=== PATIENT | female | born 1940 | race Caucasian/White ===

== ENCOUNTER 2023-12-13 18:41 | Inpatient (IN) | payer OTHER ==
[~2023-12-13] VITALS: Ht 152.4 cm; Wt 34.5 kg
[2023-12-13] MEDS: IV NS 0.9% 1,000 ML BAG IV ONE (19:28)
[2023-12-13 19:38] LABS: BASOPHILS % (AUTO) 0.2 % (0.0-2.0); HEMATOCRIT 36 % (33-45); HEMOGLOBIN 11.2 g/dL (11.5-14.8); LYMPHOCYTES # (AUTO) 0.6 K/uL (0.8-4.8); LYMPHOCYTES % (AUTO) 2.8 % (20.0-44.0); MEAN CORPUSCULAR HEMOGLOBIN 33 PG (26.0-33.0); MEAN CORPUSCULAR HGB CONC 32 g/dl (31.0-36.0); MEAN CORPUSCULAR VOLUME 106 fL (82-100); MONOCYTES # (AUTO) 1.1 K/uL (0.1-1.30); MONOCYTES % (AUTO) 5.4 % (2.0-12.0); NEUTROPHILS # (AUTO) 19.3 K/uL (1.8-8.9); NEUTROPHILS % (AUTO) 91.6 % (43.0-81.0); PLATELET COUNT (AUTO) 300 K/uL (150-450); RED BLOOD CELL COUNT(AUTO) 3.37 MIL/uL (4.0-5.2); WHITE BLOOD COUNT (AUTO) 21.1 K/uL (4.3-11.0)
[2023-12-13 19:54] LABS: CALCIUM, SERUM 9.4 mg/dL (8.5-10.1); CARBON DIOXIDE 27 mmol/L (21-32); CHLORIDE 116 mmol/L (98-107); CREATININE 1.1 mg/dL (0.6-1.3); GLUCOSE 112 mg/dL (74-106); POTASSIUM 4.6 mmol/L (3.5-5.1); SODIUM SERUM 152 mmol/L (136-145); UREA NITROGEN, BLOOD 56 mg/dL (7-18)
[2023-12-13] MEDS ORDERED: CEFEPIME 1 GM VIAL ONE (19:57)
[2023-12-13 19:58] LABS: APPEARANCE,URINE Clear (CLEAR); BILIRUBIN,URINE Negative (NEGATIVE); BLOOD, URINE Negative Ery/uL (NEGATIVE); COLOR,URINE YELLOW (YELLOW); KETONES,URINE Negative (NEGATIVE); LEUKOCYTE ESTERASE ,URINE Negative (NEGATIVE); NITRITE, URINE Negative (NEGATIVE); PROTEIN,URINE Negative (NEGATIVE); UGLUCOSE Negative (NEGATIVE); UROBILINOGEN,URINE 0.2 EU/dL (0.2)
[2023-12-13 20:04] LABS: INR 1.19 (0.91-1.10); PARTIAL THROMBOPLASTIN TIME 28.6 SEC (24.3-34.3); PROTHROMBIN TIME 12.2 SECS (9.2-11.1)
[2023-12-13] MEDS: CEFEPIME 1 GM in IV D5W 50 ML IV ONE (20:04)
[2023-12-13 20:08] LABS: ALANINE AMINOTRANSFERASE 18 U/L (12-78); ALBUMIN 2.6 g/dL (3.4-5.0); ALKALINE PHOSPHATASE 91 U/L (46-116); ASPARTATE AMINOTRANSFERASE 26 U/L (15-37); BILIRUBIN,DIRECT 0.4 mg/dL (0.0-0.2); BILIRUBIN,TOTAL 0.8 mg/dL (0.2-1.0); TOTAL PROTEIN, SERUM 6.8 g/dL (6.4-8.2)
[2023-12-13] MEDS ORDERED: VANCOMYCIN 1 GM /D5W 250 ML PB IV ONE (20:18)
[2023-12-13] MEDS: VANCOMYCIN 1 GM in IV D5W 250 ML IV ONE (20:19)
[2023-12-13 20:20] LABS: THYROID STIMULATING HORMONE 0.473 uIU/mL (0.358-3.74)
[2023-12-13 20:34] LABS: MAGNESIUM 2.7 mg/dL (1.8-2.4)
[2023-12-13] MEDS ORDERED: Z GUARD REMEDY 4 OZ OINT TP PRN (21:00)
[2023-12-13] MEDS ORDERED: ONDANSETRON HCL/PF 4 MG/2 ML VIAL IVP PRN (21:00)
[2023-12-13] MEDS ORDERED: MAGNESIUM HYDROXIDE 30 ML UDC PO PRN (21:00)
[2023-12-13] MEDS ORDERED: MAG HYDROX/AL HYDROX/SIMETH 30 ML UDC PO PRN (21:00)
[2023-12-13] MEDS ORDERED: POTA10TA10 PO (21:50)
[2023-12-13] MEDS ORDERED: DOCU100C36 PO (21:50)
[2023-12-13] MEDS ORDERED: APIX2.5T PO (21:50)
[2023-12-13] MEDS ORDERED: IPRA0.2S49 IH (21:50)
[2023-12-13] MEDS ORDERED: OMEP20CA15 PO (21:50)
[2023-12-13] MEDS ORDERED: TICA90TA PO (21:50)
[2023-12-13] MEDS ORDERED: ATOR20TA PO (21:50)
[2023-12-13] MEDS ORDERED: ASPI-1169 PO (21:50)
[2023-12-13] MEDS ORDERED: ACET-73 PO (21:50)
[2023-12-13] MEDS ORDERED: POLY17PO4 PO (21:50)
[2023-12-13] MEDS ORDERED: SERT25TA PO (21:50)
[2023-12-13] MEDS ORDERED: DIGO125T PO (21:50)
[2023-12-13] MEDS ORDERED: MEGE40TA5 GT (21:50)
[2023-12-13] MEDS ORDERED: METO25TA4 PO (21:50)
[2023-12-13] MEDS ORDERED: BUME1TAB8 PO (21:50)
[2023-12-13] MEDS ORDERED: MELA5TAB PO (21:50)
[2023-12-13] MEDS: IV D5W 1,000 ML IV PRN (23:18)
[2023-12-14] VITALS (8 sets, daily range): BP systolic 96–108; BP diastolic 54–73; TEMP 96.9–97.9; O2SAT 94–99
[2023-12-14 07:26] LABS: HEMATOCRIT 30 % (33-45); HEMOGLOBIN 9.4 g/dL (11.5-14.8); LYMPHOCYTES # (AUTO) 0.6 K/uL (0.8-4.8); LYMPHOCYTES % (AUTO) 2.9 % (20.0-44.0); MEAN CORPUSCULAR HEMOGLOBIN 34 PG (26.0-33.0); MEAN CORPUSCULAR HGB CONC 31 g/dl (31.0-36.0); MEAN CORPUSCULAR VOLUME 108 fL (82-100); MONOCYTES # (AUTO) 1.3 K/uL (0.1-1.30); MONOCYTES % (AUTO) 6.9 % (2.0-12.0); NEUTROPHILS # (AUTO) 17.6 K/uL (1.8-8.9); NEUTROPHILS % (AUTO) 90.2 % (43.0-81.0); PLATELET COUNT (AUTO) 219 K/uL (150-450); RED BLOOD CELL COUNT(AUTO) 2.81 MIL/uL (4.0-5.2); RED CELL DISTRIBUTION WIDTH 19.1 % (11.5-15.0); WHITE BLOOD COUNT (AUTO) 19.5 K/uL (4.3-11.0)
[2023-12-14 07:54] LABS: CALCIUM, SERUM 8.4 mg/dL (8.5-10.1); CHLORIDE 116 mmol/L (98-107); CREATININE 0.9 mg/dL (0.6-1.3); GLUCOSE 152 mg/dL (74-106); MAGNESIUM 2.2 mg/dL (1.8-2.4); PHOSPHORUS 3.7 mg/dL (2.5-4.9); POTASSIUM 3.5 mmol/L (3.5-5.1); SODIUM SERUM 151 mmol/L (136-145); UREA NITROGEN, BLOOD 44 mg/dL (7-18)
[2023-12-14 08:03] LABS: THYROID STIMULATING HORMONE 0.321 uIU/mL (0.358-3.74)
[2023-12-14 08:20] LABS: CARBON DIOXIDE 24 mmol/L (21-32)
[2023-12-14] MEDS ORDERED: PANTOPRAZOLE 40 MG VIAL IV SCH (09:00)
[2023-12-14] MEDS ORDERED: ACET325T53 PO (09:23)
[2023-12-14] MEDS ORDERED: MEGE400O5 PO (09:23)
[2023-12-14] MEDS ORDERED: SERTRALINE HCL 25 MG TABLET PO SCH (09:30)
[2023-12-14] MEDS: ENOXAPARIN SODIUM 30 MG/0.3 ML DISP.SYRIN SQ SCH (09:38)
[2023-12-14] MEDS: PANTOPRAZOLE 40 MG TABLET.DR PO SCH (10:42)
[2023-12-14] MEDS: IPRATROPIUM NEB FS 0.5 MG/2.5 ML AMPUL.NEB IH SCH (13:00)
[2023-12-14] MEDS ORDERED: METOPROLOL SUCCINATE 25 MG TAB.SR.24H PO SCH (17:00)
[2023-12-14] MEDS: MEGESTROL ACETATE SUSP 400 MG/10 ML UDC PO SCH (18:07)
[2023-12-14] MEDS: DOCUSATE SODIUM 100 MG CAPSULE PO SCH (18:07)
[2023-12-14] MEDS: TICAGRELOR 90 MG TABLET PO SCH (18:07)
[2023-12-14] MEDS: ACETAMINOPHEN 325 MG TABLET PO PRN (18:07)
[2023-12-14] MEDS: VANCOMYCIN 750 MG in IV D5W 250 ML IV SCH (21:02)
[2023-12-14] MEDS: ATORVASTATIN 10 MG TABLET PO SCH (21:02)
[2023-12-14] MEDS ORDERED: Medication Not On Formulary EA (Melatonin 5 MG) PO SCH (22:00)
[2023-12-15] VITALS (16 sets, daily range): BP systolic 91–150; BP diastolic 51–74; TEMP 97.5–100.4; O2SAT 94–99
[2023-12-15 07:38] LABS: CALCIUM, SERUM 8.6 mg/dL (8.5-10.1); CREATININE 0.8 mg/dL (0.6-1.3); POTASSIUM 3.4 mmol/L (3.5-5.1)
[2023-12-15] MEDS: ASPIRIN 81 MG TAB.CHEW PO SCH (08:24)
[2023-12-15] MEDS: POTASSIUM CHLORIDE 10 MEQ TABLET.SA PO SCH (08:25)
[2023-12-15 08:54] LABS: BASOPHILS # (AUTO) 0.1 K/uL (0.0-0.2); BASOPHILS % (AUTO) 0.8 % (0.0-2.0); HEMATOCRIT 32 % (33-45); HEMOGLOBIN 9.9 g/dL (11.5-14.8); LYMPHOCYTES # (AUTO) 0.4 K/uL (0.8-4.8); LYMPHOCYTES % (AUTO) 4.9 % (20.0-44.0); MEAN CORPUSCULAR HEMOGLOBIN 34 PG (26.0-33.0); MEAN CORPUSCULAR HGB CONC 31 g/dl (31.0-36.0); MEAN CORPUSCULAR VOLUME 107 fL (82-100); MONOCYTES # (AUTO) 0.4 K/uL (0.1-1.30); MONOCYTES % (AUTO) 4.5 % (2.0-12.0); NEUTROPHILS # (AUTO) 8.1 K/uL (1.8-8.9); NEUTROPHILS % (AUTO) 89.8 % (43.0-81.0); PLATELET COUNT (AUTO) 195 K/uL (150-450); RED BLOOD CELL COUNT(AUTO) 2.95 MIL/uL (4.0-5.2); RED CELL DISTRIBUTION WIDTH 18.2 % (11.5-15.0)
[2023-12-15] MEDS: ENOXAPARIN SODIUM 40 MG/0.4 ML DISP.SYRIN SQ SCH (08:55)
[2023-12-15] MEDS ORDERED: BUMETANIDE (1 MG) 1 MG TABLET PO SCH (09:00)
[2023-12-15] MEDS: POTASSIUM CHLORIDE 10 MEQ TABLET.SA PO ONE (09:56)
[2023-12-15] MEDS: POTASSIUM CL. PREMIX PERIPHER. 50 ML IV SCH (09:58)
[2023-12-15] MEDS: CEFEPIME 1 GM in IV D5W 50 ML IV SCH (11:26)
[2023-12-15] MEDS ORDERED: DIGOXIN 0.125 MG TABLET PO SCH (13:00)
[2023-12-16] VITALS (18 sets, daily range): BP systolic 93–118; BP diastolic 52–67; TEMP 97.2–98; O2SAT 95–100
[2023-12-16 07:28] LABS: CALCIUM, SERUM 8.8 mg/dL (8.5-10.1); CREATININE 0.6 mg/dL (0.6-1.3); POTASSIUM 3.1 mmol/L (3.5-5.1)
[2023-12-16] MEDS: POTASSIUM CHLORIDE 20 MEQ POWDER PACKET PO SCH (10:02)
[2023-12-16 18:32] LABS: BASOPHILS % (AUTO) 0.1 % (0.0-2.0); EOSINOPHILS % (AUTO) 0.4 % (0.0-6.0); HEMATOCRIT 28 % (33-45); HEMOGLOBIN 9.1 g/dL (11.5-14.8); LYMPHOCYTES # (AUTO) 0.4 K/uL (0.8-4.8); LYMPHOCYTES % (AUTO) 4.6 % (20.0-44.0); MEAN CORPUSCULAR HEMOGLOBIN 34 PG (26.0-33.0); MEAN CORPUSCULAR HGB CONC 33 g/dl (31.0-36.0); MEAN CORPUSCULAR VOLUME 104 fL (82-100); MONOCYTES # (AUTO) 0.6 K/uL (0.1-1.30); MONOCYTES % (AUTO) 5.8 % (2.0-12.0); NEUTROPHILS # (AUTO) 8.6 K/uL (1.8-8.9); NEUTROPHILS % (AUTO) 89.1 % (43.0-81.0); PLATELET COUNT (AUTO) 172 K/uL (150-450); WHITE BLOOD COUNT (AUTO) 9.7 K/uL (4.3-11.0)
[2023-12-16 20:46] LABS: BAND % (MANUAL) 2 % (0.0-5.0); LYMPHOCYTES % (MANUAL) 5 % (16-48); MONOCYTES % (MANUAL) 4 % (0-11.0); NEUTROPHILS % (MANUAL) 89 (42-76); PLATELET ESTIMATE ADEQUATE
[2023-12-16 20:47] LABS: ANISOCYTOSIS 1+; OVALOCYTES 1+
[2023-12-16] MEDS: CEFTRIAXONE 1 G in IV D5W 50 ML IV SCH (21:49)
[2023-12-17] VITALS (16 sets, daily range): BP systolic 100–129; BP diastolic 60–80; TEMP 97.4–97.9; O2SAT 92–100
[2023-12-17 07:38] LABS: OCCULT BLOOD STOOL POSITIVE (NEGATIVE)
[2023-12-17 07:55] LABS: CALCIUM, SERUM 8.6 mg/dL (8.5-10.1); CARBON DIOXIDE 23 mmol/L (21-32); CHLORIDE 109 mmol/L (98-107); CREATININE 0.5 mg/dL (0.6-1.3); GLUCOSE 78 mg/dL (74-106); POTASSIUM 4.1 mmol/L (3.5-5.1); SODIUM SERUM 141 mmol/L (136-145); UREA NITROGEN, BLOOD 18 mg/dL (7-18)
[2023-12-17] MEDS: AMMONIUM LACTATE 227 GM BOTTLE TP SCH (11:07)
[2023-12-17] MEDS: APIXABAN 2.5 MG TABLET PO SCH (11:13)
[2023-12-17 23:32] LABS: HEMOGLOBIN 8.8 g/dL (11.5-14.8)
[2023-12-18] VITALS (15 sets, daily range): BP systolic 108–140; BP diastolic 57–91; TEMP 97.2–97.9; O2SAT 92–100
[2023-12-18 06:54] LABS: EOSINOPHILS % (AUTO) 0.4 % (0.0-6.0); HEMATOCRIT 29 % (33-45); HEMOGLOBIN 9.3 g/dL (11.5-14.8); LYMPHOCYTES # (AUTO) 0.4 K/uL (0.8-4.8); LYMPHOCYTES % (AUTO) 5.9 % (20.0-44.0); MEAN CORPUSCULAR HEMOGLOBIN 34 PG (26.0-33.0); MEAN CORPUSCULAR HGB CONC 32 g/dl (31.0-36.0); MEAN CORPUSCULAR VOLUME 105 fL (82-100); MONOCYTES # (AUTO) 0.6 K/uL (0.1-1.30); MONOCYTES % (AUTO) 8.4 % (2.0-12.0); NEUTROPHILS # (AUTO) 6.3 K/uL (1.8-8.9); NEUTROPHILS % (AUTO) 85.3 % (43.0-81.0); PLATELET COUNT (AUTO) 185 K/uL (150-450); RED BLOOD CELL COUNT(AUTO) 2.73 MIL/uL (4.0-5.2); RED CELL DISTRIBUTION WIDTH 18.4 % (11.5-15.0); WHITE BLOOD COUNT (AUTO) 7.4 K/uL (4.3-11.0)
[2023-12-18 07:04] LABS: CALCIUM, SERUM 9.2 mg/dL (8.5-10.1); CREATININE 0.6 mg/dL (0.6-1.3); POTASSIUM 3.9 mmol/L (3.5-5.1)
[2023-12-18] MEDS ORDERED: CEFT1VIA15 IV (12:25)
[2023-12-18 15:16] LABS: HEMOGLOBIN 8.8 g/dL (11.5-14.8)
[2023-12-18 23:02] LABS: HEMOGLOBIN 8.8 g/dL (11.5-14.8)
[2023-12-19] VITALS (14 sets, daily range): BP systolic 110–135; BP diastolic 59–96; TEMP 96.8–97.6; O2SAT 95–100
[2023-12-19 06:55] LABS: BASOPHILS % (AUTO) 0.1 % (0.0-2.0); EOSINOPHILS % (AUTO) 0.7 % (0.0-6.0); HEMATOCRIT 29 % (33-45); HEMOGLOBIN 9.1 g/dL (11.5-14.8); LYMPHOCYTES # (AUTO) 0.5 K/uL (0.8-4.8); LYMPHOCYTES % (AUTO) 8.2 % (20.0-44.0); MEAN CORPUSCULAR HEMOGLOBIN 34 PG (26.0-33.0); MEAN CORPUSCULAR HGB CONC 32 g/dl (31.0-36.0); MEAN CORPUSCULAR VOLUME 105 fL (82-100); MONOCYTES # (AUTO) 0.6 K/uL (0.1-1.30); MONOCYTES % (AUTO) 9.1 % (2.0-12.0); NEUTROPHILS # (AUTO) 5.4 K/uL (1.8-8.9); NEUTROPHILS % (AUTO) 81.9 % (43.0-81.0); PLATELET COUNT (AUTO) 204 K/uL (150-450); RED BLOOD CELL COUNT(AUTO) 2.71 MIL/uL (4.0-5.2); RED CELL DISTRIBUTION WIDTH 18.4 % (11.5-15.0); WHITE BLOOD COUNT (AUTO) 6.6 K/uL (4.3-11.0)
[2023-12-19 06:56] LABS: CALCIUM, SERUM 9.2 mg/dL (8.5-10.1); CHLORIDE 111 mmol/L (98-107); CREATININE 0.5 mg/dL (0.6-1.3); GLUCOSE 91 mg/dL (74-106); POTASSIUM 3.8 mmol/L (3.5-5.1); SODIUM SERUM 144 mmol/L (136-145); UREA NITROGEN, BLOOD 16 mg/dL (7-18)
[2023-12-19 07:10] LABS: CARBON DIOXIDE 21 mmol/L (21-32)
[2023-12-19] MEDS: ENSURE ENLIVE CHOC 237 ML CAN PO SCH (12:14)
[2023-12-19] MEDS: PROSOURCE / PROSTAT (PYXIS) 30 ML UDC PO SCH (12:29)
[2023-12-20] VITALS (21 sets, daily range): BP systolic 124–159; BP diastolic 66–79; TEMP 97–97.5; O2SAT 97–100
[2023-12-20] MEDS: ZOLPIDEM TARTRATE 5 MG TABLET PO PRN (01:50)
[2023-12-20 07:16] LABS: CALCIUM, SERUM 9.7 mg/dL (8.5-10.1); CREATININE 0.6 mg/dL (0.6-1.3); POTASSIUM 4.2 mmol/L (3.5-5.1)
[2023-12-20] MEDS: IPRATROPIUM NEB FS 0.5 MG/2.5 ML AMPUL.NEB NEB SCH (07:50)
[2023-12-21] VITALS (13 sets, daily range): BP systolic 103–140; BP diastolic 67–85; TEMP 96.8–98.4; O2SAT 94–100
[2023-12-21 07:26] LABS: CALCIUM, SERUM 9.5 mg/dL (8.5-10.1); CREATININE 0.7 mg/dL (0.6-1.3); POTASSIUM 3.7 mmol/L (3.5-5.1)
[2023-12-21 12:13] LABS: BASOPHILS % (AUTO) 0.3 % (0.0-2.0); EOSINOPHILS % (AUTO) 0.3 % (0.0-6.0); HEMATOCRIT 30 % (33-45); HEMOGLOBIN 9.1 g/dL (11.5-14.8); LYMPHOCYTES # (AUTO) 0.5 K/uL (0.8-4.8); LYMPHOCYTES % (AUTO) 7.1 % (20.0-44.0); MEAN CORPUSCULAR HEMOGLOBIN 32 PG (26.0-33.0); MEAN CORPUSCULAR HGB CONC 30 g/dl (31.0-36.0); MEAN CORPUSCULAR VOLUME 107 fL (82-100); MONOCYTES # (AUTO) 0.4 K/uL (0.1-1.30); MONOCYTES % (AUTO) 5.8 % (2.0-12.0); NEUTROPHILS # (AUTO) 6.7 K/uL (1.8-8.9); NEUTROPHILS % (AUTO) 86.5 % (43.0-81.0); PLATELET COUNT (AUTO) 244 K/uL (150-450); RED BLOOD CELL COUNT(AUTO) 2.83 MIL/uL (4.0-5.2); RED CELL DISTRIBUTION WIDTH 19.7 % (11.5-15.0); WHITE BLOOD COUNT (AUTO) 7.7 K/uL (4.3-11.0)
[2023-12-21] MEDS: FUROSEMIDE 40 MG/4 ML VIAL IV SCH (12:41)
[2023-12-21 18:10] LABS: HEMATOCRIT 26 % (33-45); HEMOGLOBIN 8.4 g/dL (11.5-14.8); MEAN CORPUSCULAR HEMOGLOBIN 33 PG (26.0-33.0); MEAN CORPUSCULAR HGB CONC 32 g/dl (31.0-36.0); MEAN CORPUSCULAR VOLUME 105 fL (82-100); PLATELET COUNT (AUTO) 253 K/uL (150-450); RED BLOOD CELL COUNT(AUTO) 2.51 MIL/uL (4.0-5.2); RED CELL DISTRIBUTION WIDTH 18.8 % (11.5-15.0); WHITE BLOOD COUNT (AUTO) 8.3 K/uL (4.3-11.0)
[2023-12-21 23:50] LABS: HEMATOCRIT 24 % (33-45); HEMOGLOBIN 7.6 g/dL (11.5-14.8); MEAN CORPUSCULAR HEMOGLOBIN 33 PG (26.0-33.0); MEAN CORPUSCULAR HGB CONC 32 g/dl (31.0-36.0); MEAN CORPUSCULAR VOLUME 105 fL (82-100); PLATELET COUNT (AUTO) 232 K/uL (150-450); RED BLOOD CELL COUNT(AUTO) 2.28 MIL/uL (4.0-5.2); RED CELL DISTRIBUTION WIDTH 18.1 % (11.5-15.0); WHITE BLOOD COUNT (AUTO) 9.1 K/uL (4.3-11.0)
[2023-12-22] VITALS (16 sets, daily range): BP systolic 109–119; BP diastolic 69–75; TEMP 97.2–97.8; O2SAT 97–100
[2023-12-22 07:32] LABS: BASOPHILS % (AUTO) 0.1 % (0.0-2.0); EOSINOPHILS % (AUTO) 0.3 % (0.0-6.0); HEMATOCRIT 25 % (33-45); HEMOGLOBIN 7.9 g/dL (11.5-14.8); LYMPHOCYTES # (AUTO) 0.5 K/uL (0.8-4.8); LYMPHOCYTES % (AUTO) 6.1 % (20.0-44.0); MEAN CORPUSCULAR HEMOGLOBIN 34 PG (26.0-33.0); MEAN CORPUSCULAR HGB CONC 32 g/dl (31.0-36.0); MEAN CORPUSCULAR VOLUME 106 fL (82-100); MONOCYTES # (AUTO) 0.4 K/uL (0.1-1.30); MONOCYTES % (AUTO) 4.4 % (2.0-12.0); NEUTROPHILS % (AUTO) 89.1 % (43.0-81.0); PLATELET COUNT (AUTO) 233 K/uL (150-450); RED BLOOD CELL COUNT(AUTO) 2.32 MIL/uL (4.0-5.2); RED CELL DISTRIBUTION WIDTH 18.2 % (11.5-15.0)
[2023-12-22 07:43] LABS: CALCIUM, SERUM 9.4 mg/dL (8.5-10.1); CREATININE 0.9 mg/dL (0.6-1.3); POTASSIUM 3.3 mmol/L (3.5-5.1)
[2023-12-22] MEDS: POTASSIUM CL. PREMIX PERIPHER. 50 ML IV SCH (09:58)
[2023-12-22 14:22] LABS: HEMOGLOBIN 8.2 g/dL (11.5-14.8)
[2023-12-22] MEDS: PANTOPRAZOLE 40 MG VIAL IV SCH (16:12)
[2023-12-22] MEDS ORDERED: BISACODYL SUPP (10 MG) 10 MG/SUPP.RECT SUPP.RECT RC PRN (21:30)
[2023-12-22] MEDS: SENNOSIDES 8.6 MG TABLET PO SCH (21:56)
[2023-12-23] VITALS (16 sets, daily range): BP systolic 99–137; BP diastolic 58–95; TEMP 97.4–98.8; O2SAT 0–100
[2023-12-23 02:27] LABS: HEMOGLOBIN 7.6 g/dL (11.5-14.8)
[2023-12-23 02:57] LABS: IRON, SERUM 63 ug/dl (50-175); TOTAL IRON BINDING CAPACITY 131 ug/dl (250-450)
[2023-12-23 02:58] LABS: FERRITIN 705 ng/mL (8-388)
[2023-12-23 07:19] LABS: HEMATOCRIT 24 % (33-45); HEMOGLOBIN 7.5 g/dL (11.5-14.8); LYMPHOCYTES # (AUTO) 0.5 K/uL (0.8-4.8); LYMPHOCYTES % (AUTO) 3.9 % (20.0-44.0); MEAN CORPUSCULAR HEMOGLOBIN 34 PG (26.0-33.0); MEAN CORPUSCULAR HGB CONC 32 g/dl (31.0-36.0); MEAN CORPUSCULAR VOLUME 106 fL (82-100); MONOCYTES # (AUTO) 0.4 K/uL (0.1-1.30); MONOCYTES % (AUTO) 3.2 % (2.0-12.0); NEUTROPHILS # (AUTO) 12.7 K/uL (1.8-8.9); NEUTROPHILS % (AUTO) 92.9 % (43.0-81.0); PLATELET COUNT (AUTO) 261 K/uL (150-450); RED BLOOD CELL COUNT(AUTO) 2.24 MIL/uL (4.0-5.2); RED CELL DISTRIBUTION WIDTH 18.1 % (11.5-15.0); WHITE BLOOD COUNT (AUTO) 13.7 K/uL (4.3-11.0)
[2023-12-23 08:37] LABS: CALCIUM, SERUM 9.1 mg/dL (8.5-10.1); CARBON DIOXIDE 21 mmol/L (21-32); CHLORIDE 115 mmol/L (98-107); CREATININE 1.2 mg/dL (0.6-1.3); GLUCOSE 128 mg/dL (74-106); POTASSIUM 3.9 mmol/L (3.5-5.1); SODIUM SERUM 150 mmol/L (136-145); UREA NITROGEN, BLOOD 44 mg/dL (7-18)
[2023-12-23] MEDS: PANTOPRAZOLE 40 MG/PACK PACK PO SCH (09:23)
[2023-12-23 14:22] LABS: HEMOGLOBIN 7.4 g/dL (11.5-14.8)
[2023-12-24] VITALS (10 sets, daily range): BP systolic 95–100; BP diastolic 55–86; TEMP 97.5–98.4; O2SAT 94–100
[2023-12-24 07:30] LABS: HEMATOCRIT 24 % (33-45); HEMOGLOBIN 7.5 g/dL (11.5-14.8); LYMPHOCYTES # (AUTO) 0.7 K/uL (0.8-4.8); MEAN CORPUSCULAR HEMOGLOBIN 33 PG (26.0-33.0); MEAN CORPUSCULAR HGB CONC 31 g/dl (31.0-36.0); MEAN CORPUSCULAR VOLUME 109 fL (82-100); MONOCYTES # (AUTO) 0.5 K/uL (0.1-1.30); MONOCYTES % (AUTO) 3.3 % (2.0-12.0); NEUTROPHILS # (AUTO) 13.6 K/uL (1.8-8.9); NEUTROPHILS % (AUTO) 91.7 % (43.0-81.0); PLATELET COUNT (AUTO) 306 K/uL (150-450); RED BLOOD CELL COUNT(AUTO) 2.23 MIL/uL (4.0-5.2); RED CELL DISTRIBUTION WIDTH 19.3 % (11.5-15.0); WHITE BLOOD COUNT (AUTO) 14.8 K/uL (4.3-11.0)
[2023-12-24 14:48] LABS: HEMOGLOBIN 7.3 g/dL (11.5-14.8)
== END 2023-12-24 17:35 | DRG 871 ==
LOC: ER 18:45 → MEDSG1 22:00 → TELE1 22:42 → MEDSG1 12-19 08:33
PROVIDERS: ADMIT Nurse Practitioner Acute Care; ATTEND Internal Medicine
PROC: 02HV33Z Insertion of Infusion Device into Superior Vena Cava, Percutaneous Approach (ICD-10-PCS; principal; 2023-12-21)
PROC: B548ZZA Ultrasonography of Superior Vena Cava, Guidance (ICD-10-PCS; 2023-12-21)
DX: A41.01 Sepsis due to Methicillin susceptible Staphylococcus aureus (principal); E43 Unspecified severe protein-calorie malnutrition; I21.A1 Myocardial infarction type 2; R65.21 Severe sepsis with septic shock; G92.8 Other toxic encephalopathy; D68.59 Other primary thrombophilia; I13.0 Hypertensive heart and chronic kidney disease with heart failure and stage 1 through stage 4 chronic kidney disease, or unspecified chronic kidney disease; N17.9 Acute kidney failure, unspecified; E87.0 Hyperosmolality and hypernatremia; Z68.1 Body mass index [BMI] 19.9 or less, adult; K57.92 Diverticulitis of intestine, part unspecified, without perforation or abscess without bleeding; R64 Cachexia; I38 Endocarditis, valve unspecified; I96 Gangrene, not elsewhere classified; D62 Acute posthemorrhagic anemia; I76 Septic arterial embolism; E86.0 Dehydration; Z20.822 Contact with and (suspected) exposure to COVID-19; I50.9 Heart failure, unspecified; N18.9 Chronic kidney disease, unspecified; E78.5 Hyperlipidemia, unspecified; Z66 Do not resuscitate; I25.2 Old myocardial infarction; R62.7 Adult failure to thrive; I71.40 Abdominal aortic aneurysm, without rupture, unspecified; K21.9 Gastro-esophageal reflux disease without esophagitis; R13.10 Dysphagia, unspecified; I25.10 Atherosclerotic heart disease of native coronary artery without angina pectoris; I48.0 Paroxysmal atrial fibrillation; F03.90 Unspecified dementia, unspecified severity, without behavioral disturbance, psychotic disturbance, mood disturbance, and anxiety; E88.09 Other disorders of plasma-protein metabolism, not elsewhere classified; D63.8 Anemia in other chronic diseases classified elsewhere; M89.8X9 Other specified disorders of bone, unspecified site; Z74.09 Other reduced mobility; Z79.899 Other long term (current) drug therapy; Z79.01 Long term (current) use of anticoagulants; Z95.5 Presence of coronary angioplasty implant and graft; L89.621 Pressure ulcer of left heel, stage 1; L89.611 Pressure ulcer of right heel, stage 1; L89.159 Pressure ulcer of sacral region, unspecified stage; Z79.02 Long term (current) use of antithrombotics/antiplatelets; Z79.82 Long term (current) use of aspirin
CPT/HCPCS: 36415; 71045-TC; 74018; 80048-TC; 80076-TC; 80162-TC; 80202-TC; 82272-TC; 82728-TC; 83540-TC; 83605-TC; 83735-TC; 83880; 84100-TC; 84439-TC; 84443-TC; 84484-TC; 85025-TC; 85027-TC; 85730-TC; 87040-TC; 87081-TC; 87086-TC; 92521; 92526; 92611-TC; 93307-TC; 94761-TC; 94762-TC; 94799-TC; 97110-TC; 97112-TC; 97530-TC; A4223; A6403; C9113; G0378; J0692; J0696; J1650; J1940; J3370; J3371; J3480; J7030; J7040; J7050; J7060; J7070